=== PATIENT | female | born 1995 ===

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

== ENCOUNTER 2018-03-05 18:46 | Emergency (ER) | payer MEDICAID ==
[2018-03-05 19:09] VITALS: BP 116/73; PULSE 62; RESP 16; TEMP 98.7; O2SAT 100
--- NOTE | 2018-03-05 20:02 | ED PDOC ---
Syncope/Near Syncope/Dizziness Time Seen by Provider: 03/05/18 19:47 Chief Complaint (Nursing): Dizziness/Lightheaded History Per: Patient History/Exam Limitations: no limitations Onset/Duration Of Symptoms: Days (1 month) Activity At Onset Of Symptoms: Lying, Had Just Stood up, Change In Head Position Associated Symptoms Preceding Syncopal Episode: Vertigo Worse With Change In Head Position Additional Complaint(s): 22 year old F with no PMHX presenting with dizziness x 1 month, states it is a room-spinning sensation worse with standing and changing head position or lying down. States she has a sensation of "water" in her ears as well. Denies fevers, chills, cough, nausea, vomiting, chest pain, shortness of breath. Has not seen PMD. No headache, vision changes, weakness, numbness. States she's had a "cold" for the past week and has had sore throat. Past Medical History Reviewed: Historical Data, Nursing Documentation, Vital Signs Vital Signs: Last Vital Signs Temp 98.7 F 03/05/18 19:06 Pulse 62 03/05/18 19:06 Resp 16 03/05/18 19:06 BP 116/73 03/05/18 19:06 Pulse Ox 100 03/05/18 19:06 - Medical History PMH: Asthma Denies: Diabetes, Hepatitis, HIV, HTN, Chronic Kidney Disease, Seizures, Sexually Transmitted Disease - Family History Family History: States: Unknown Family Hx - Home Medications Home Medications: Ambulatory Orders Medication Instructions Recorded Cephalexin [Keflex] 500 mg PO Q6 #40 cap 10/19/16 buPROPion [Wellbutrin] 100 mg PO DAILY #30 tab 10/19/16 Ibuprofen [Motrin Tab] 600 mg PO Q6 #30 tab 03/05/18 Meclizine [Antivert] 25 mg PO Q6 #30 tab 03/05/18 - Allergies Allergies/Adverse Reactions: Allergies Allergy/AdvReac Type Severity Reaction Status Date / Time No Known Allergies Allergy Verified 06/13/14 17:26 Review of Systems ROS Statement: Except As Marked, All Systems Reviewed And Found Negative Neurological: Positive for: Dizziness Physical Exam - Reviewed Nursing Documentation Reviewed: Yes Vital Signs Reviewed: Yes - Physical Exam Appears: Positive for: Well, Non-toxic, No Acute Distress Head Exam: Positive for: ATRAUMATIC, NORMAL INSPECTION, NORMOCEPHALIC Skin: Positive for: Normal Color, Warm, DRY Eye Exam: Positive for: EOMI, Normal appearance, PERRL ENT: Positive for: Normal ENT Inspection Neck: Positive for: Normal, Painless ROM Cardiovascular/Chest: Positive for: Regular Rate, Rhythm Respiratory: Positive for: CNT, Normal Breath Sounds Gastrointestinal/Abdominal: Positive for: Normal Exam, Soft Back: Positive for: Normal Inspection Extremity: Positive for: Normal ROM Neurologic/Psych: Positive for: Alert, law instructor II-XII, Oriented, Cerebellar Tests (normal), Gait (normal). Negative for: Motor/Sensory Deficits, Aphasia - ECG O2 Sat by Pulse Oximetry: 100 Pulse Ox Interpretation: Normal Medical Decision Making Medical Decision MakinPM Patient presenting with dizziness for one month --Currently well appearing, normal vitals, normal exam --Description of symptoms appear to be BPV --Advised patient to followup with ENT --No acute intervention necessary in ED at this time --Will prescribe NSAIDs and meclizine Disposition - Clinical Impression Clinical Impression: Vertigo - Disposition Referrals: Herbert Wei MD [Staff Provider] - Disposition: Routine/Home Disposition Time: 20:04 Condition: IMPROVED Prescriptions: Ibuprofen [Motrin Tab] 600 mg PO Q6 #30 tab Meclizine [Antivert] 25 mg PO Q6 #30 tab Instructions: Vertigo (a Type of Dizziness) (DC)
== END 2018-03-05 20:25 | disposition home or self-care (01) ==
LOC: H.ER 18:46
DX: R42 Dizziness and giddiness (principal)